=== PATIENT | female | born 1945 | race Caucasian/White ===

== ENCOUNTER 2016-02-25 10:14 | Outpatient (CLI) | payer MEDICARE, OTHER | END 2016-02-25 10:15 | disposition home or self-care (01) | DX: Z79.01 Long term (current) use of anticoagulants (principal); I48.91 Unspecified atrial fibrillation ==

== ENCOUNTER 2016-02-28 12:57 | Outpatient (CLI) | payer MEDICARE, OTHER | END 2016-02-28 12:58 | disposition home or self-care (01) | DX: Z12.31 Encounter for screening mammogram for malignant neoplasm of breast (principal); Z85.3 Personal history of malignant neoplasm of breast; N64.59 Other signs and symptoms in breast; R92.1 Mammographic calcification found on diagnostic imaging of breast | CPT/HCPCS: 76642; G0204 ==

== ENCOUNTER 2016-03-03 13:00 | Outpatient (CLI) | payer MEDICARE, OTHER | END 2016-03-03 13:01 | disposition home or self-care (01) | DX: G47.33 Obstructive sleep apnea (adult) (pediatric) (principal); R53.83 Other fatigue | CPT/HCPCS: 99204; G0463 ==

== ENCOUNTER 2016-03-10 14:02 | Outpatient (CLI) | payer MEDICARE, OTHER | END 2016-03-10 14:03 | disposition home or self-care (01) | DX: I48.91 Unspecified atrial fibrillation (principal); Z79.01 Long term (current) use of anticoagulants ==

== ENCOUNTER 2016-03-17 12:00 | Outpatient (CLI) | payer MEDICARE, OTHER ==
[2016-03-17] MEDS ORDERED: BUFFERED LIDOCAINE 10 ML SYRINGE IU ONE (14:13)
[2016-03-17] MEDS ORDERED: BUPIVACAINE 0.5%-EPI 1:200000 PF 30 ML VIAL SUBQ ONE (14:13)
== END 2016-03-17 12:01 | disposition home or self-care (01) ==
DX: R92.1 Mammographic calcification found on diagnostic imaging of breast (principal); D24.1 Benign neoplasm of right breast; N60.21 Fibroadenosis of right breast; R92.0 Mammographic microcalcification found on diagnostic imaging of breast
CPT/HCPCS: 19081; G0206

== ENCOUNTER 2016-03-24 09:27 | Outpatient (CLI) | payer MEDICARE, OTHER | END 2016-03-24 09:28 | disposition home or self-care (01) | DX: Z79.01 Long term (current) use of anticoagulants (principal); I48.91 Unspecified atrial fibrillation ==

== ENCOUNTER 2016-03-28 19:46 | Outpatient (CLI) | payer MEDICARE, OTHER | END 2016-03-28 19:47 | disposition home or self-care (01) | DX: G47.00 Insomnia, unspecified (principal) ==

== ENCOUNTER 2016-04-07 10:46 | Outpatient (CLI) | payer MEDICARE, OTHER | END 2016-04-07 10:47 | disposition home or self-care (01) | DX: I48.91 Unspecified atrial fibrillation (principal); Z79.01 Long term (current) use of anticoagulants ==

== ENCOUNTER 2016-04-29 10:54 | Outpatient (CLI) | payer MEDICARE, OTHER | END 2016-04-29 10:55 | disposition home or self-care (01) | DX: M19.012 Primary osteoarthritis, left shoulder (principal); Z96.612 Presence of left artificial shoulder joint; M62.512 Muscle wasting and atrophy, not elsewhere classified, left shoulder ==

== ENCOUNTER 2016-05-05 10:20 | Outpatient (CLI) | payer MEDICARE, OTHER | END 2016-05-05 10:21 | disposition home or self-care (01) | DX: G47.00 Insomnia, unspecified (principal); G25.81 Restless legs syndrome | CPT/HCPCS: 99214; G0463 ==

== ENCOUNTER 2016-05-12 13:22 | Outpatient (CLI) | payer MEDICARE, OTHER | END 2016-05-12 13:23 | disposition home or self-care (01) | DX: I48.91 Unspecified atrial fibrillation (principal); Z79.01 Long term (current) use of anticoagulants ==

== ENCOUNTER 2016-05-15 08:45 | Outpatient (CLI) | payer MEDICARE, OTHER | END 2016-05-15 08:46 | disposition home or self-care (01) | DX: M47.22 Other spondylosis with radiculopathy, cervical region (principal); M48.02 Spinal stenosis, cervical region ==

== ENCOUNTER 2016-06-09 09:40 | Outpatient (CLI) | payer MEDICARE, OTHER | END 2016-06-09 09:41 | disposition home or self-care (01) | DX: Z79.01 Long term (current) use of anticoagulants (principal); I48.91 Unspecified atrial fibrillation ==

== ENCOUNTER 2016-06-09 10:39 | Outpatient (CLI) | payer MEDICARE, OTHER | END 2016-06-09 10:40 | disposition home or self-care (01) | DX: G47.33 Obstructive sleep apnea (adult) (pediatric) (principal); I48.91 Unspecified atrial fibrillation; Z79.01 Long term (current) use of anticoagulants | CPT/HCPCS: 85610; 99214; G0463 ==

== ENCOUNTER 2016-07-24 14:58 | Outpatient (CLI) | payer MEDICARE, OTHER ==
[2016-07-24 18:09] LABS: BASOPHILS # (AUTO) 0.1 10^3/uL (0.0-0.1); BASOPHILS % (AUTO) 0.9 %; EOSINOPHILS # (AUTO) 0.1 10^3/uL (0.0-0.7); EOSINOPHILS % (AUTO) 1.4 %; HCT - HEMATOCRIT 46.7 % (37.0-47.0); LYMPHOCYTES # (AUTO) 2.4 10^3/uL (1.5-3.5); LYMPHOCYTES % (AUTO) 30.6 %; MEAN CORPUSCULAR HEMOGLOBIN 34.9 pg (27.0-31.0); MEAN CORPUSCULAR HGB CONC 34.4 g/dL (32.0-36.0); MEAN CORPUSCULAR VOLUME 101.6 fL (81.0-99.0); MONOCYTES # (AUTO) 0.5 10^3/uL (0.0-1.0); MONOCYTES % (AUTO) 6.3 %; NEUTROPHILS # (AUTO) 4.8 10^3/uL (1.5-6.6); NEUTROPHILS % (AUTO) 60.8 %; NUCLEATED RED BLOOD CELLS AUTO 0.1 /100WBC; RED BLOOD COUNT 4.59 10^6/uL (4.20-5.40); RED CELL DISTRIBUTION WIDTH 13.9 % (12.0-15.0); UNCORRECTED WHITE BLOOD COUNT 7.8 x10^3/uL; WHITE BLOOD COUNT 7.8 x10^3/uL (4.8-10.8)
[2016-07-24 18:11] LABS: CALCIUM 8.8 mg/dL (8.5-10.3); CREATININE 0.7 mg/dL (0.4-1.0); POTASSIUM 4.1 mmol/L (3.5-5.0)
[2016-07-24 19:15] LABS: HEMOGLOBIN A1C 0.81 g/dL
== END 2016-07-24 14:59 | disposition home or self-care (01) ==
LOC: LAB.F 14:58
PROVIDERS: ATTEND Orthopaedic Surgery
DX: Z01.812 Encounter for preprocedural laboratory examination (principal); R73.9 Hyperglycemia, unspecified
CPT/HCPCS: 36415; 80048; 83036; 85025

== ENCOUNTER 2016-08-17 10:14 | Outpatient (CLI) | payer MEDICARE, OTHER | END 2016-08-17 10:15 | disposition home or self-care (01) | LOC: LAB.F 10:14 | PROVIDERS: ATTEND Pharmacist | DX: I48.91 Unspecified atrial fibrillation (principal); Z79.01 Long term (current) use of anticoagulants | CPT/HCPCS: 85610 ==

== ENCOUNTER 2016-08-31 10:19 | Outpatient (CLI) | payer MEDICARE, OTHER | END 2016-08-31 10:20 | disposition home or self-care (01) | LOC: LAB.F 10:19 | PROVIDERS: ATTEND Pharmacist | DX: I48.91 Unspecified atrial fibrillation (principal); Z79.01 Long term (current) use of anticoagulants | CPT/HCPCS: 85610 ==

== ENCOUNTER 2016-09-21 10:26 | Outpatient (CLI) | payer MEDICARE, OTHER | END 2016-09-21 10:27 | disposition home or self-care (01) | LOC: LAB.F 10:26 | PROVIDERS: ATTEND Pharmacist | DX: I48.91 Unspecified atrial fibrillation (principal); Z79.01 Long term (current) use of anticoagulants | CPT/HCPCS: 85610 ==

== ENCOUNTER 2016-10-22 14:09 | Outpatient (CLI) | payer MEDICARE, OTHER | END 2016-10-22 14:10 | disposition home or self-care (01) | LOC: LAB.F 14:09 | PROVIDERS: ATTEND Pharmacist | DX: I48.91 Unspecified atrial fibrillation (principal); Z79.01 Long term (current) use of anticoagulants | CPT/HCPCS: 85610 ==

== ENCOUNTER 2016-11-09 10:04 | Outpatient (CLI) | payer MEDICARE, OTHER ==
--- NOTE | 2016-11-09 13:34 | Mammography Report ---
DIGITAL DIAGNOSTIC RIGHT MAMMOGRAM: 11/09/2016 CLINICAL INDICATION: Followup benign stereotactic biopsy. TECHNIQUE: Right CC, MLO, true lateral, spot magnification views. COMPARISON: 02/28/2016, 03/17/2016, 01/16/2015, 11/09/2013, 08/17/2012, 12/16/2010, 12/30/2009. FINDINGS: The right breast again demonstrates heterogeneously dense fibroglandular parenchyma. Biop sy markers in stable position. No residual calcifications are seen. No suspicious masses, or region s of architectural distortion are identified. IMPRESSION: BENIGN FINDINGS. RECOMMENDATION: The patient can return to routine annual screening, with the next screening mammogra m due in February 2017, unless otherwise clinical indicated. BI-RADS category 2, benign findings. STANDARD QUALIFYING STATEMENTS 1. This examination was reviewed with the aid of Computer-Aided Detection (CAD). 2. A negative or benign imaging report should not delay biopsy if clinically suspicious findings are present. Consider surgical consultation if warranted. More than 5% of cancers are not identified by i maging. 3. Dense breasts may obscure an underlying neoplasm. JOB #: [id number] EXT JOB #:[id number]
== END 2016-11-09 10:05 | disposition home or self-care (01) ==
LOC: DI 10:04
PROVIDERS: ATTEND Specialist
DX: N64.89 Other specified disorders of breast (principal)

== ENCOUNTER 2016-11-19 10:48 | Outpatient (CLI) | payer MEDICARE, OTHER | END 2016-11-19 10:49 | disposition home or self-care (01) | LOC: LAB.F 10:48 | PROVIDERS: ATTEND Pharmacist | DX: I48.91 Unspecified atrial fibrillation (principal); Z79.01 Long term (current) use of anticoagulants | CPT/HCPCS: 85610 ==

== ENCOUNTER 2016-12-07 11:08 | Outpatient (CLI) | payer MEDICARE, OTHER | END 2016-12-07 11:09 | disposition home or self-care (01) | LOC: LAB.F 11:08 | PROVIDERS: ATTEND Internal Medicine Cardiovascular Disease | DX: I48.91 Unspecified atrial fibrillation (principal); Z79.01 Long term (current) use of anticoagulants | CPT/HCPCS: 85610 ==

== ENCOUNTER 2016-12-24 10:51 | Outpatient (CLI) | payer MEDICARE, OTHER | END 2016-12-24 10:52 | disposition home or self-care (01) | LOC: LAB.F 10:51 | PROVIDERS: ATTEND Pharmacist | DX: I48.91 Unspecified atrial fibrillation (principal); Z79.01 Long term (current) use of anticoagulants | CPT/HCPCS: 85610 ==

== ENCOUNTER 2017-01-22 12:50 | Outpatient (CLI) | payer MEDICARE, OTHER | END 2017-01-22 12:51 | disposition home or self-care (01) | LOC: LAB.F 12:50 | PROVIDERS: ATTEND Pharmacist | DX: Z79.01 Long term (current) use of anticoagulants (principal); I48.91 Unspecified atrial fibrillation | CPT/HCPCS: 85610 ==

== ENCOUNTER 2017-02-03 11:33 | Outpatient (CLI) | payer MEDICARE, OTHER | END 2017-02-03 11:34 | disposition home or self-care (01) | LOC: LAB.F 11:33 | PROVIDERS: ATTEND Pharmacist | DX: I48.91 Unspecified atrial fibrillation (principal); Z79.01 Long term (current) use of anticoagulants ==

== ENCOUNTER 2017-02-09 09:46 | Outpatient (CLI) | payer MEDICARE, OTHER ==
[2017-02-09 19:05] LABS: CHOL/HDL RATIO 1.9 (<4.4); CHOLESTEROL 122 mg/dL; HDL CHOLESTEROL 64 mg/dL; LDL/HDL RATIO 0.5 (<4.4); TRIGLYCERIDES 120 mg/dL; VLDL CHOLESTEROL 24 mg/dL
== END 2017-02-09 09:47 | disposition home or self-care (01) ==
LOC: LAB.F 09:46
PROVIDERS: ATTEND Pharmacist
DX: I48.91 Unspecified atrial fibrillation (principal); E78.00 Pure hypercholesterolemia, unspecified; Z79.01 Long term (current) use of anticoagulants; I25.10 Atherosclerotic heart disease of native coronary artery without angina pectoris
CPT/HCPCS: 36415; 80061; 84443; 84450; 84460; 85610

== ENCOUNTER 2017-02-22 11:22 | Outpatient (CLI) | payer MEDICARE, OTHER ==
--- NOTE | 2017-02-22 13:01 | XRAY Report ---
DATE OF SERVICE: 02/22/2017 RIGHT HIP AND PELVIS: 02/22/2017 CLINICAL INDICATION: Pain. FINDINGS: Frontal view of the hips and pelvis and frogleg lateral view of the right hip demonstrate moderate right hip osteoarthritis. There is no evidence of acute fracture or dislocation. Vascular calcifica tions are seen. Postsurgical changes are noted in the pelvis. IMPRESSION: MODERATE RIGHT HIP OSTEOARTHRITIS. TD: 02/22/2017 14:00
== END 2017-02-22 11:23 | disposition home or self-care (01) ==
LOC: DI 11:22
PROVIDERS: ATTEND Specialist
DX: M16.11 Unilateral primary osteoarthritis, right hip (principal)

== ENCOUNTER 2017-03-09 12:31 | Outpatient (CLI) | payer MEDICARE, OTHER | END 2017-03-09 12:32 | disposition home or self-care (01) | LOC: LAB.F 12:31 | PROVIDERS: ATTEND Pharmacist | DX: I48.91 Unspecified atrial fibrillation (principal); Z79.01 Long term (current) use of anticoagulants | CPT/HCPCS: 85610 ==

== ENCOUNTER 2017-04-06 11:10 | Outpatient (CLI) | payer MEDICARE, OTHER | END 2017-04-06 11:11 | disposition home or self-care (01) | LOC: LAB.F 11:10 | PROVIDERS: ATTEND Pharmacist | DX: I48.91 Unspecified atrial fibrillation (principal); Z79.01 Long term (current) use of anticoagulants | CPT/HCPCS: 85610 ==

== ENCOUNTER 2017-04-21 12:57 | Outpatient (CLI) | payer MEDICARE, OTHER | END 2017-04-21 12:58 | disposition home or self-care (01) | LOC: RT 12:57 | PROVIDERS: ATTEND Internal Medicine Cardiovascular Disease | DX: I48.91 Unspecified atrial fibrillation (principal); I25.10 Atherosclerotic heart disease of native coronary artery without angina pectoris; G47.33 Obstructive sleep apnea (adult) (pediatric); J44.9 Chronic obstructive pulmonary disease, unspecified | CPT/HCPCS: 94010; 94729 ==

== ENCOUNTER 2017-05-04 08:00 | Outpatient (CLI) | payer MEDICARE, OTHER | END 2017-05-04 08:01 | disposition home or self-care (01) | LOC: LAB.F 08:00 | PROVIDERS: ATTEND Pharmacist | DX: I48.91 Unspecified atrial fibrillation (principal); Z79.01 Long term (current) use of anticoagulants | CPT/HCPCS: 85610 ==

== ENCOUNTER 2017-06-03 13:18 | Outpatient (CLI) | payer MEDICARE, OTHER ==
--- NOTE | 2017-06-03 14:53 | MRI Report ---
EXAM: MRI CERVICAL SPINE WITHOUT CONTRAST EXAM DATE: 06/03/2017 02:18 PM. CLINICAL HISTORY: 72-year-old with history of cervical fusion presenting with neck pain and left arm pain and numbness COMPARISONS: MR cervical spine 05/15/2016. TECHNIQUE: Multiplanar, multisequence T1-weighted and fluid-sensitive sequences of the cervical spine without contrast. Other: None. FINDINGS: Postsurgical: [id number] changes of C4-C7 ACDF and C4-C5 through C6-C7 diskectomy with interbody fu sarwat graft placement. Neurologic Structures: The visualized posterior fossa structures are unremarkable. No signal abnormal ity in the visualized spinal cord. Alignment: Straightening of the normal cervical lordosis. No definite spondylolisthesis or scoliotic curvature. Bone Marrow: Again demonstrated is endplate edema at C7-T1 that appear similar to prior study. No acu te fracture seen. No definite marrow replacing lesion. There is susceptibility artifact due to metall ic hardware that technically limits evaluation of the C4-C7 vertebral bodies. Interspace Levels/Facets: C1-C2: Unremarkable. C2-C3: Mild loss of disk height and disk desiccation. Small posterior disk osteophyte complex. Left u ncovertebral osteophyte and arthritic facet disease. No spinal canal stenosis. Mild left neural andrez inal narrowing. Findings are similar to 05/15/2016 C3-C4: Mild endplate degenerative change with mild loss of disk images desiccation. Small posterior d isk osteophyte complex with right paracentral disk osteophyte. Bilateral to osteophyte and arthritic facet disease. Mild spinal canal stenosis and effacement of the right lateral recess. Severe right an d moderate left neuroforaminal narrowing. Findings are similar. C4-C5: Postsurgical change. Small posterior disk osteophyte complex. Bilateral uncovertebral osteophy te and arthritic facet disease. Moderate spinal canal stenosis. Severe bilateral neural foraminal niko rowing. Findings appear stable to minimally improved from prior study C5-C6: Surgical changes. Small posterior disk osteophyte complex. Bilateral uncovertebral osteophyte and arthritic facet disease. Mild to moderate spinal canal stenosis. Severe right and opexylvx-hy-ell ere left neural foraminal narrowing. Findings appear stable to slightly improved from prior study. C6-C7: Surgical changes. Small posterior disk osteophyte complex. Bilateral uncovertebral osteophyte and arthritic facet disease. Mild to moderate spinal canal stenosis. Moderate bilateral neural forami nal narrowing. Findings are stable to slightly improved from prior study. C7-T1: Mild endplate degenerative change with mild loss of disk height and disk desiccation. Small po sterior disk bulge. No spinal canal stenosis. No definite neural foraminal narrowing. Musculature: Normal. No edema or fatty atrophy. Other: The paravertebral and prevertebral soft tissues are normal. IMPRESSION: 1. Postsurgical changes of C4-C7 ACDF and C4-C5 through C6-C7 diskectomy with interbody fusion graft placement. 2. Straightening of the normal cervical lordosis. 3. Multilevel degenerative changes. C2-C3: No spinal canal stenosis. Mild left neural foraminal narrowing. Findings are similar to 017 C3-C4: Mild spinal canal stenosis and effacement of the right lateral recess. Severe right and modera te left neuroforaminal narrowing. Findings are similar. C4-C5: Moderate spinal canal stenosis. Severe bilateral neural foraminal narrowing. Findings appear stable to minimally improved from prior study C5-C6: Mild to moderate spinal canal stenosis. Severe right and [id number]-ju-trzvdt left neural forami nal narrowing. Findings appear stable to slightly improved from prior study. C6-C7: Mild to moderate spinal canal stenosis. Moderate bilateral neural foraminal narrowing. Finding s are stable to slightly improved from prior study. [facility] Referring Provider Line: [phone] SITE ID: [id number]
== END 2017-06-03 13:19 | disposition home or self-care (01) ==
LOC: DI 13:18
PROVIDERS: ATTEND Orthopaedic Surgery
DX: M50.31 Other cervical disc degeneration, high cervical region (principal); M47.892 Other spondylosis, cervical region; Z98.1 Arthrodesis status
CPT/HCPCS: 72141

== ENCOUNTER 2017-06-09 13:06 | Outpatient (CLI) | payer MEDICARE, OTHER | END 2017-06-09 13:07 | disposition home or self-care (01) | LOC: LAB.F 13:06 | PROVIDERS: ATTEND Pharmacist | DX: I48.91 Unspecified atrial fibrillation (principal); Z79.01 Long term (current) use of anticoagulants | CPT/HCPCS: 85610 ==

== ENCOUNTER 2017-08-04 11:08 | Outpatient (CLI) | payer MEDICARE, OTHER | END 2017-08-04 11:09 | disposition home or self-care (01) | LOC: LAB.F 11:08 | PROVIDERS: ATTEND Pharmacist | DX: I48.91 Unspecified atrial fibrillation (principal); Z79.01 Long term (current) use of anticoagulants | CPT/HCPCS: 85610 ==

== ENCOUNTER → 2017-10-06 | Outpatient (CLI) | payer MEDICARE, OTHER ==
[2017-10-06 17:48] LABS: INR 2.6 (0.8-1.2); PT - PROTHROMBIN TIME 28.3 secs (9.9-12.6)
== END ==
LOC: LAB.F 08:00
PROVIDERS: ATTEND Pharmacist
DX: I48.1 Persistent atrial fibrillation (principal); Z79.01 Long term (current) use of anticoagulants
CPT/HCPCS: 36415; 85610

== ENCOUNTER 2017-11-10 14:38 | Outpatient (CLI) | payer MEDICARE, OTHER | END 2017-11-10 14:39 | disposition home or self-care (01) | LOC: LAB.F 14:38 | PROVIDERS: ATTEND Pharmacist | DX: I48.1 Persistent atrial fibrillation (principal); Z79.01 Long term (current) use of anticoagulants | CPT/HCPCS: 36415; 85610 ==

== ENCOUNTER 2017-11-17 14:30 | Outpatient (CLI) | payer MEDICARE, OTHER | END 2017-11-17 14:31 | disposition home or self-care (01) | LOC: LAB.F 14:30 | PROVIDERS: ATTEND Pharmacist | DX: I48.1 Persistent atrial fibrillation (principal); Z79.01 Long term (current) use of anticoagulants | CPT/HCPCS: 85610 ==

== ENCOUNTER 2017-11-26 11:28 | Outpatient (CLI) | payer MEDICARE, OTHER | END 2017-11-26 11:29 | disposition home or self-care (01) | LOC: LAB.F 11:28 | PROVIDERS: ATTEND Pharmacist | DX: Z79.01 Long term (current) use of anticoagulants (principal); I48.91 Unspecified atrial fibrillation | CPT/HCPCS: 85610 ==

== ENCOUNTER 2017-12-15 11:55 | Outpatient (CLI) | payer MEDICARE, OTHER | END 2017-12-15 23:59 | disposition home or self-care (01) | LOC: LAB.F 11:55 | PROVIDERS: ATTEND Pharmacist | DX: I48.1 Persistent atrial fibrillation (principal); Z79.01 Long term (current) use of anticoagulants | CPT/HCPCS: 85610 ==

== ENCOUNTER 2017-12-31 13:03 | Outpatient (CLI) | payer MEDICARE, OTHER | END 2017-12-31 13:04 | disposition home or self-care (01) | LOC: LAB.F 13:03 | PROVIDERS: ATTEND Pharmacist | DX: I48.1 Persistent atrial fibrillation (principal); Z79.01 Long term (current) use of anticoagulants | CPT/HCPCS: 85610 ==

== ENCOUNTER 2018-01-27 13:48 | Outpatient (CLI) | payer MEDICARE, OTHER | END 2018-01-27 13:49 | disposition home or self-care (01) | LOC: LAB.F 13:48 | PROVIDERS: ATTEND Pharmacist | DX: I48.1 Persistent atrial fibrillation (principal); Z79.01 Long term (current) use of anticoagulants | CPT/HCPCS: 85610 ==

== ENCOUNTER 2018-02-23 11:33 | Outpatient (CLI) | payer MEDICARE, OTHER | END 2018-02-23 11:34 | disposition home or self-care (01) | LOC: LAB.F 11:33 | PROVIDERS: ATTEND Pharmacist | DX: I48.1 Persistent atrial fibrillation (principal); Z79.01 Long term (current) use of anticoagulants | CPT/HCPCS: 85610 ==

== ENCOUNTER 2018-03-09 12:57 | Outpatient (CLI) | payer MEDICARE, OTHER | END 2018-03-09 12:58 | disposition home or self-care (01) | LOC: LAB.F 12:57 | PROVIDERS: ATTEND Pharmacist | DX: I48.1 Persistent atrial fibrillation (principal); Z79.01 Long term (current) use of anticoagulants | CPT/HCPCS: 85610 ==

== ENCOUNTER 2018-03-14 13:44 | Outpatient (CLI) | payer MEDICARE, OTHER ==
[2018-03-14 14:09] LABS: BASOPHILS # (AUTO) 0.1 10^3/uL (0.0-0.1); BASOPHILS % (AUTO) 1.2 %; EOSINOPHILS # (AUTO) 0.1 10^3/uL (0.0-0.7); EOSINOPHILS % (AUTO) 1.2 %; HGB - HEMOGLOBIN 15.7 g/dL (12.0-16.0); LYMPHOCYTES # (AUTO) 2.5 10^3/uL (1.5-3.5); LYMPHOCYTES % (AUTO) 34.9 %; MEAN CORPUSCULAR HEMOGLOBIN 34.6 pg (27.0-31.0); MEAN CORPUSCULAR HGB CONC 34.6 g/dL (32.0-36.0); MEAN CORPUSCULAR VOLUME 100.1 fL (81.0-99.0); MEAN PLATELET VOLUME 8.2 fL (7.9-10.8); MONOCYTES # (AUTO) 0.6 10^3/uL (0.0-1.0); MONOCYTES % (AUTO) 8.2 %; NEUTROPHILS # (AUTO) 3.9 10^3/uL (1.5-6.6); NEUTROPHILS % (AUTO) 54.5 %; PLT - PLATELET COUNT 220 10^3/uL (130-450); RED BLOOD COUNT 4.53 10^6/uL (4.20-5.40); RED CELL DISTRIBUTION WIDTH 13.9 % (12.0-15.0); WHITE BLOOD COUNT 7.2 x10^3/uL (4.8-10.8)
== END 2018-03-14 13:45 | disposition home or self-care (01) ==
LOC: LAB 13:44
PROVIDERS: ATTEND Orthopaedic Surgery
DX: Z01.818 Encounter for other preprocedural examination (principal); M16.11 Unilateral primary osteoarthritis, right hip; Z01.812 Encounter for preprocedural laboratory examination
CPT/HCPCS: 36415; 80051; 81599; 85025; 93005

== ENCOUNTER 2018-04-22 15:29 | Outpatient (CLI) | payer MEDICARE, OTHER | END 2018-04-22 15:30 | disposition home or self-care (01) | LOC: LAB.F 15:29 | PROVIDERS: ATTEND Pharmacist | DX: Z51.81 Encounter for therapeutic drug level monitoring (principal); Z79.01 Long term (current) use of anticoagulants; I48.1 Persistent atrial fibrillation | CPT/HCPCS: 85610 ==

== ENCOUNTER 2018-05-02 08:00 | Outpatient (CLI) | payer MEDICARE, OTHER ==
[2018-05-02 19:48] LABS: BILIRUBIN,URINE NEGATIVE (NEGATIVE); GLUCOSE, URINE (UA) NEGATIVE (NEGATIVE); KETONES,URINE (UA) NEGATIVE (NEGATIVE); LEUKOCYTE ESTERASE, URINE LARGE (NEGATIVE); NITRITE,URINE NEGATIVE (NEGATIVE); OCCULT BLOOD,URINE TRACE-INTA (NEGATIVE); PH,URINE 7.5 PH (5.0-7.5); PROTEIN,URINE NEGATIVE (NEGATIVE); UROBILINOGEN,URINE 0.2 (NORMAL) E.U./dL (NORMAL)
[2018-05-02 20:00] LABS: CLARITY,URINE SL. CLOUDY (CLEAR)
[2018-05-03 12:09] LABS: BACTERIA,URINE Many /HPF (None Seen); RBC,URINE 0-5 /HPF (0-5); SQUAMOUS EPITHELIAL CELL,UR MANY Squamous (<= Few)
== END 2018-05-02 23:59 | disposition home or self-care (01) ==
LOC: LAB.R 08:00
PROVIDERS: ATTEND Internal Medicine
DX: R30.0 Dysuria (principal)
CPT/HCPCS: 81001; 81003; 87086

== ENCOUNTER 2018-05-05 08:00 | Outpatient (CLI) | payer MEDICARE, OTHER ==
[2018-05-05 17:37] LABS: HGB - HEMOGLOBIN 13.8 g/dL (12.0-16.0); MEAN CORPUSCULAR HEMOGLOBIN 33.2 pg (27.0-31.0); MEAN CORPUSCULAR HGB CONC 33.7 g/dL (32.0-36.0); MEAN CORPUSCULAR VOLUME 98.7 fL (81.0-99.0); MEAN PLATELET VOLUME 8.7 fL (7.9-10.8); RED BLOOD COUNT 4.15 10^6/uL (4.20-5.40)
[2018-05-05 17:57] LABS: ALBUMIN/GLOBULIN RATIO 1.4 (1.0-2.2); BILIRUBIN,TOTAL 0.4 mg/dL (0.2-1.0); CALCIUM 9.8 mg/dL (8.5-10.3); CREATININE 0.5 mg/dL (0.4-1.0); TOTAL PROTEIN 6.9 g/dL (6.7-8.2)
[2018-05-05 18:53] LABS: HB2 TOTAL 14.8 g/dL; HEMOGLOBIN A1C 0.64 g/dL; HEMOGLOBIN A1C % 6.1 % (4.6-6.2)
== END 2018-05-05 23:59 | disposition home or self-care (01) ==
LOC: LAB.R 08:00
PROVIDERS: ATTEND Internal Medicine
DX: E11.9 Type 2 diabetes mellitus without complications (principal); F32.9 Major depressive disorder, single episode, unspecified; I48.91 Unspecified atrial fibrillation
CPT/HCPCS: 80053; 83036; 84443; 85027

== ENCOUNTER 2018-05-18 11:28 | Outpatient (CLI) | payer MEDICARE, OTHER | END 2018-05-18 11:29 | disposition home or self-care (01) | LOC: LAB.F 11:28 | PROVIDERS: ATTEND Pharmacist | DX: Z79.01 Long term (current) use of anticoagulants (principal); I48.1 Persistent atrial fibrillation | CPT/HCPCS: 85610 ==

== ENCOUNTER 2018-06-01 14:33 | Outpatient (CLI) | payer MEDICARE, OTHER | END 2018-06-01 14:34 | disposition home or self-care (01) | LOC: LAB.F 14:33 | PROVIDERS: ATTEND Pharmacist | DX: I48.1 Persistent atrial fibrillation (principal); Z79.01 Long term (current) use of anticoagulants | CPT/HCPCS: 85610 ==

== ENCOUNTER 2018-06-11 02:20 | Outpatient (CLI) | payer MEDICARE, OTHER | END 2018-06-11 02:21 | disposition EMS.NT | LOC: EMS 02:20 | PROVIDERS: ATTEND Surgery | DX: R00.0 Tachycardia, unspecified (principal) ==

== ENCOUNTER 2018-06-16 11:22 | Outpatient (CLI) | payer MEDICARE, OTHER | END 2018-06-16 11:23 | disposition home or self-care (01) | LOC: LAB.F 11:22 | PROVIDERS: ATTEND Pharmacist | DX: Z79.01 Long term (current) use of anticoagulants (principal); I48.1 Persistent atrial fibrillation | CPT/HCPCS: 85610 ==

== ENCOUNTER 2018-07-15 09:52 | Outpatient (CLI) | payer MEDICARE, OTHER | END 2018-07-15 09:53 | disposition home or self-care (01) | LOC: LAB.F 09:52 | PROVIDERS: ATTEND Pharmacist | DX: I48.1 Persistent atrial fibrillation (principal); Z79.01 Long term (current) use of anticoagulants | CPT/HCPCS: 36415; 85610 ==

== ENCOUNTER 2018-07-20 15:22 | Outpatient (CLI) | payer MEDICARE, OTHER ==
[2018-07-20 17:46] LABS: HGB - HEMOGLOBIN 14.4 g/dL (12.0-16.0); MEAN CORPUSCULAR HEMOGLOBIN 33.2 pg (27.0-31.0); MEAN CORPUSCULAR HGB CONC 33.8 g/dL (32.0-36.0); MEAN CORPUSCULAR VOLUME 98.4 fL (81.0-99.0); MEAN PLATELET VOLUME 8.3 fL (7.9-10.8); RED BLOOD COUNT 4.33 10^6/uL (4.20-5.40); RED CELL DISTRIBUTION WIDTH 14.3 % (12.0-15.0); WHITE BLOOD COUNT 7.4 x10^3/uL (4.8-10.8)
[2018-07-20 17:52] LABS: INR 2.1 (0.8-1.2); PT - PROTHROMBIN TIME 23.6 secs (9.9-12.6)
[2018-07-20 18:10] LABS: ALBUMIN 4.5 g/dL (3.2-5.5); ALBUMIN/GLOBULIN RATIO 1.7 (1.0-2.2); BILIRUBIN,TOTAL 0.4 mg/dL (0.2-1.0); CREATININE 0.5 mg/dL (0.4-1.0); TOTAL PROTEIN 7.2 g/dL (6.7-8.2)
[2018-07-20 18:54] LABS: CALCIUM 9.7 mg/dL (8.5-10.3)
[2018-07-20 18:55] LABS: HB2 TOTAL 15.3 g/dL; HEMOGLOBIN A1C 0.64 g/dL
== END 2018-07-20 15:23 | disposition home or self-care (01) ==
LOC: LAB.F 15:22
PROVIDERS: ATTEND Pharmacist
DX: I48.1 Persistent atrial fibrillation (principal); Z79.01 Long term (current) use of anticoagulants; E11.9 Type 2 diabetes mellitus without complications; F32.9 Major depressive disorder, single episode, unspecified
CPT/HCPCS: 36415; 80053; 83036; 84443; 85027; 85610

== ENCOUNTER 2018-08-10 15:54 | Outpatient (CLI) | payer MEDICARE, OTHER ==
--- NOTE | 2018-08-10 17:29 | XRAY Report ---
Reason: PAINFUL L FOOT/JOINT Procedure Date: 08/10/2018 Accession Number: [id number] / [id number] Procedure: XR - Foot 3 View LT CPT Code: FULL RESULT: EXAM: LEFT FOOT RADIOGRAPHY EXAM DATE: 08/10/2018 04:31 PM. CLINICAL HISTORY: PAINFUL L FOOT/JOINT. Duration 3 weeks. No known trauma. COMPARISON: None. TECHNIQUE: 3 views. FINDINGS: Bones: Normal. No fractures or bone lesions. No erosive changes. Joints: 25 degree hallux valgus. Mild first metatarsophalangeal joint space narrowing. Soft Tissues: Calcaneal enthesophytes. Soft tissue fullness medial to left first metatarsal head with a small 2 mm calcific focus. IMPRESSION: 1. Bunion deformity. 2. Radiographic changes suggesting gout. Soft tissue fullness and small calcification medial to first metatarsal head. Recommend clinical correlation. [facility]
== END 2018-08-10 15:55 | disposition home or self-care (01) ==
LOC: DI 15:54
PROVIDERS: ATTEND Podiatrist
DX: M20.12 Hallux valgus (acquired), left foot (principal); M21.612 Bunion of left foot; M77.32 Calcaneal spur, left foot

== ENCOUNTER 2018-08-17 10:03 | Outpatient (CLI) | payer MEDICARE, OTHER ==
--- NOTE | 2018-08-17 10:54 | Mammography Report ---
Reason: SCREENING FOR BREAST CANCER Procedure Date: 08/17/2018 Accession Number: [id number] / [id number] Procedure: MGS - Screening Mammo Dig Bilat CPT Code: FULL RESULT: EXAM: Screening Mammo Dig Bilat DATE: 08/17/2018 10:36 AM CLINICAL HISTORY: Personal history of left breast cancer status post radiation and chemotherapy. For routine screening. Nulliparous patient. TECHNIQUE: (B) - Bilateral CC and MLO views were obtained. COMPARISON: 11/09/2016, 03/17/2016, 02/28/2016, 01/16/2015, 11/09/2013 and 08/17/2012 PARENCHYMAL PATTERN: (D) - The breasts demonstrate heterogeneously dense fibroglandular parenchyma bilaterally. FINDINGS: No significant interval change. Posttreatment changes left breast and postsurgical changes right breast are stable. Persistent stereotactic biopsy clip right breast. Scattered benign-appearing calcifications bilaterally. No suspicious new masses, calcifications, or areas of distortion. IMPRESSION: Benign findings. BI-RADS category 2. RECOMMENDATION: (ANNUAL) - Recommend routine annual screening mammography. BI-RADS CATEGORY: (2) - Benign Findings. STANDARD QUALIFYING STATEMENTS: 1. This examination was not reviewed with the aid of Computer-Aided Detection (CAD). 2. A negative or benign imaging report should not preclude biopsy if clinically suspicious findings are present. 3. Dense breasts may obscure an underlying neoplasm. 4. This examination was reviewed without the aid of 3D breast imaging (tomosynthesis).
== END 2018-08-17 10:04 | disposition home or self-care (01) ==
LOC: DI.S 10:03
DX: Z12.31 Encounter for screening mammogram for malignant neoplasm of breast (principal); Z08 Encounter for follow-up examination after completed treatment for malignant neoplasm; Z85.3 Personal history of malignant neoplasm of breast
CPT/HCPCS: 77067

== ENCOUNTER 2018-08-26 14:27 | Outpatient (CLI) | payer MEDICARE, OTHER | END 2018-08-26 14:28 | disposition home or self-care (01) | LOC: LAB 14:27 | PROVIDERS: ATTEND Pharmacist | DX: I48.1 Persistent atrial fibrillation (principal); Z79.01 Long term (current) use of anticoagulants | CPT/HCPCS: 85610 ==

== ENCOUNTER 2018-09-19 | Outpatient (CLI) | payer MEDICARE, OTHER | END 2018-09-19 09:26 | disposition home or self-care (01) ==

== ENCOUNTER 2018-10-03 16:36 | Outpatient (CLI) | payer MEDICARE, OTHER | END 2018-10-03 16:37 | disposition home or self-care (01) | LOC: LAB 16:36 | PROVIDERS: ATTEND Pharmacist | DX: I48.1 Persistent atrial fibrillation (principal); Z79.01 Long term (current) use of anticoagulants | CPT/HCPCS: 85610 ==

== ENCOUNTER 2018-10-24 09:52 | Outpatient (CLI) | payer MEDICARE, OTHER ==
[2018-10-24 17:24] LABS: HB2 TOTAL 14.2 g/dL; HEMOGLOBIN A1C 0.55 g/dL; HEMOGLOBIN A1C % 5.7 % (4.6-6.2)
[2018-10-24 17:38] LABS: ALBUMIN 4.4 g/dL (3.2-5.5); ALBUMIN/GLOBULIN RATIO 1.6 (1.0-2.2); ALKALINE PHOSPHATASE 56 IU/L (42-121); ALT ALANINE AMINOTRANSFERASE 29 IU/L (10-60); AST ASPARTATE AMINOTRANSFERASE 27 IU/L (10-42); BILIRUBIN,TOTAL 0.5 mg/dL (0.2-1.0); BUN - BLOOD UREA NITROGEN 16 mg/dL (6-20); CALCIUM 9.4 mg/dL (8.5-10.3); CARBON DIOXIDE - CO2 29 mmol/L (21-32); CHLORIDE 99 mmol/L (101-111); CHOL/HDL RATIO 1.8 (<4.4); CHOLESTEROL 131 mg/dL; CREATININE 0.5 mg/dL (0.4-1.0); GFR - MDRD 121 (>89); GLUCOSE 105 mg/dL (70-100); HDL CHOLESTEROL 71 mg/dL; LDL CHOLESTEROL,CALCULATED 48 mg/dL; LDL/HDL RATIO 0.7 (<4.4); SODIUM 134 mmol/L (135-145); TOTAL PROTEIN 7.2 g/dL (6.7-8.2); VLDL CHOLESTEROL 12 mg/dL
== END 2018-10-24 09:53 | disposition home or self-care (01) ==
LOC: LAB.S 09:52
PROVIDERS: ATTEND Internal Medicine
DX: E78.5 Hyperlipidemia, unspecified (principal); E11.9 Type 2 diabetes mellitus without complications; E03.9 Hypothyroidism, unspecified
CPT/HCPCS: 36415; 80053; 80061; 83036; 83721; 84443

== ENCOUNTER 2018-10-27 12:17 | Outpatient (CLI) | payer MEDICARE, OTHER | END 2018-10-27 12:18 | disposition home or self-care (01) | LOC: LAB.S 12:17 | PROVIDERS: ATTEND Pharmacist | DX: I48.1 Persistent atrial fibrillation (principal); Z79.01 Long term (current) use of anticoagulants | CPT/HCPCS: 85610 ==

== ENCOUNTER 2018-11-24 10:56 | Outpatient (CLI) | payer MEDICARE, OTHER | END 2018-11-24 10:57 | disposition home or self-care (01) | LOC: LAB.S 10:56 | PROVIDERS: ATTEND Pharmacist | DX: Z51.81 Encounter for therapeutic drug level monitoring (principal); Z79.01 Long term (current) use of anticoagulants | CPT/HCPCS: 85610 ==

== ENCOUNTER 2018-12-27 08:00 | Outpatient (CLI) | payer MEDICARE, OTHER | END 2018-12-27 23:59 | disposition home or self-care (01) | LOC: LAB.S 08:00 | PROVIDERS: ATTEND Pharmacist | DX: Z79.01 Long term (current) use of anticoagulants (principal) | CPT/HCPCS: 85610 ==

== ENCOUNTER 2019-01-25 11:56 | Outpatient (CLI) | payer MEDICARE, OTHER ==
[2019-01-25 19:01] LABS: HGB - HEMOGLOBIN 14.3 g/dL (12.0-16.0); MEAN CORPUSCULAR HEMOGLOBIN 33.1 pg (27.0-31.0); MEAN CORPUSCULAR VOLUME 103.5 fL (81.0-99.0); MEAN PLATELET VOLUME 10.6 fL (7.9-10.8); RED BLOOD COUNT 4.32 10^6/uL (4.20-5.40); RED CELL DISTRIBUTION WIDTH 14.7 % (12.0-15.0); WHITE BLOOD COUNT 9.1 x10^3/uL (4.8-10.8)
[2019-01-25 19:31] LABS: ALBUMIN 4.6 g/dL (3.2-5.5); ALBUMIN/GLOBULIN RATIO 1.8 (1.0-2.2); ALKALINE PHOSPHATASE 58 IU/L (42-121); ALT ALANINE AMINOTRANSFERASE 33 IU/L (10-60); AST ASPARTATE AMINOTRANSFERASE 28 IU/L (10-42); BILIRUBIN,TOTAL 0.8 mg/dL (0.2-1.0); BUN - BLOOD UREA NITROGEN 22 mg/dL (6-20); CALCIUM 9.6 mg/dL (8.5-10.3); CARBON DIOXIDE - CO2 30 mmol/L (21-32); CHLORIDE 102 mmol/L (101-111); CHOL/HDL RATIO 2.1 (<4.4); CHOLESTEROL 140 mg/dL; CREATININE 0.5 mg/dL (0.4-1.0); GFR - MDRD 121 (>89); GLUCOSE 124 mg/dL (70-100); HDL CHOLESTEROL 67 mg/dL; LDL CHOLESTEROL,CALCULATED 53 mg/dL; LDL/HDL RATIO 0.8 (<4.4); SODIUM 139 mmol/L (135-145); TOTAL PROTEIN 7.2 g/dL (6.7-8.2); VLDL CHOLESTEROL 20 mg/dL
== END 2019-01-25 11:57 | disposition home or self-care (01) ==
LOC: LAB.S 11:56
PROVIDERS: ATTEND Internal Medicine
DX: E78.5 Hyperlipidemia, unspecified (principal); E03.9 Hypothyroidism, unspecified; I48.91 Unspecified atrial fibrillation
CPT/HCPCS: 36415; 80053; 80061; 83721; 84443; 85027

== ENCOUNTER 2019-01-31 13:17 | Outpatient (CLI) | payer MEDICARE, OTHER | END 2019-01-31 13:18 | disposition home or self-care (01) | LOC: LAB.S 13:17 | PROVIDERS: ATTEND Pharmacist | DX: Z79.01 Long term (current) use of anticoagulants (principal) | CPT/HCPCS: 85610 ==

== ENCOUNTER 2019-03-29 09:45 | Outpatient (CLI) | payer MEDICARE, OTHER | END 2019-03-29 09:46 | disposition home or self-care (01) | LOC: LAB.S 09:45 | PROVIDERS: ATTEND Pharmacist | DX: Z51.81 Encounter for therapeutic drug level monitoring (principal); Z79.01 Long term (current) use of anticoagulants | CPT/HCPCS: 85610 ==

== ENCOUNTER 2019-04-12 09:48 | Outpatient (CLI) | payer MEDICARE, OTHER | END 2019-04-12 09:49 | disposition home or self-care (01) | LOC: LAB.S 09:48 | PROVIDERS: ATTEND Pharmacist | DX: Z79.01 Long term (current) use of anticoagulants (principal) | CPT/HCPCS: 85610 ==

== ENCOUNTER 2019-06-19 15:31 | Outpatient (CLI) | payer MEDICARE, OTHER | END 2019-06-19 15:32 | disposition short-term general hospital (02) | LOC: EMS 15:31 | PROVIDERS: ATTEND Surgery | DX: R07.9 Chest pain, unspecified (principal); M54.9 Dorsalgia, unspecified; R05 Cough; R06.02 Shortness of breath | CPT/HCPCS: A0425; A0427 ==

== ENCOUNTER 2019-07-18 11:34 | Outpatient (CLI) | payer MEDICARE, OTHER | END 2019-07-18 11:35 | disposition home or self-care (01) | LOC: LAB 11:34 | PROVIDERS: ATTEND Pharmacist | DX: Z79.01 Long term (current) use of anticoagulants (principal) | CPT/HCPCS: 85610 ==

== ENCOUNTER 2019-07-29 18:27 | Outpatient (CLI) | payer MEDICARE, OTHER | END 2019-07-29 18:28 | disposition critical access hospital (66) | LOC: EMS 18:27 | PROVIDERS: ATTEND Surgery | DX: R06.00 Dyspnea, unspecified (principal); R05 Cough; R53.83 Other fatigue; R53.1 Weakness | CPT/HCPCS: A0425; A0429 ==

== ENCOUNTER 2019-08-18 09:59 | Outpatient (CLI) | payer MEDICARE, OTHER ==
[2019-08-18 14:22] LABS: BASOPHILS # (AUTO) 0.1 10^3/uL (0.0-0.1); BASOPHILS % (AUTO) 0.6 %; EOSINOPHILS # (AUTO) 0.2 10^3/uL (0.0-0.7); EOSINOPHILS % (AUTO) 2.4 %; HGB - HEMOGLOBIN 14.5 g/dL (12.0-16.0); LYMPHOCYTES # (AUTO) 2.9 10^3/uL (1.5-3.5); LYMPHOCYTES % (AUTO) 33.4 %; MEAN CORPUSCULAR HEMOGLOBIN 33.4 pg (27.0-31.0); MEAN CORPUSCULAR VOLUME 101.2 fL (81.0-99.0); MEAN PLATELET VOLUME 11.1 fL (7.9-10.8); MONOCYTES # (AUTO) 0.6 10^3/uL (0.0-1.0); MONOCYTES % (AUTO) 7.5 %; NEUTROPHILS # (AUTO) 4.8 10^3/uL (1.5-6.6); NEUTROPHILS % (AUTO) 55.8 %; PLT - PLATELET COUNT 253 10^3/uL (130-450); RED BLOOD COUNT 4.34 10^6/uL (4.20-5.40); RED CELL DISTRIBUTION WIDTH 14.4 % (12.0-15.0); WHITE BLOOD COUNT 8.6 x10^3/uL (4.8-10.8)
[2019-08-18 14:44] LABS: ALBUMIN 4.7 g/dL (3.2-5.5); BILIRUBIN,TOTAL 0.7 mg/dL (0.2-1.0); CALCIUM 9.2 mg/dL (8.5-10.3); CREATININE 0.6 mg/dL (0.4-1.0); TOTAL PROTEIN 7.1 g/dL (6.7-8.2)
[2019-08-18 14:52] LABS: HB2 TOTAL 15.7 g/dL; HEMOGLOBIN A1C 0.7 g/dL; HEMOGLOBIN A1C % 6.2 % (4.6-6.2)
== END 2019-08-18 10:00 | disposition home or self-care (01) ==
LOC: LAB.S 09:59
PROVIDERS: ATTEND Pharmacist
DX: I11.0 Hypertensive heart disease with heart failure (principal); I50.9 Heart failure, unspecified; E11.9 Type 2 diabetes mellitus without complications; Z79.01 Long term (current) use of anticoagulants; J44.9 Chronic obstructive pulmonary disease, unspecified
CPT/HCPCS: 36415; 80053; 83036; 83880; 85025; 85610